=== PATIENT | female | born 1980 | race Two or more races ===

== ENCOUNTER 2022-07-18 21:40 | Emergency (ER) | payer BC, OTHER ==
[2022-07-18 22:01] VITALS: BP 120/70; PULSE 86; RESP 16; TEMP 98.5; BMI 20.5
== END 2022-07-18 23:35 | disposition home or self-care (01) ==
LOC: FER 21:40
DX: S00.33XA Contusion of nose, initial encounter (principal); S00.83XA Contusion of other part of head, initial encounter; S00.10XA Contusion of unspecified eyelid and periocular area, initial encounter; W23.1XXA Caught, crushed, jammed, or pinched between stationary objects, initial encounter; V48.4XXA Person boarding or alighting a car injured in noncollision transport accident, initial encounter
CPT/HCPCS: 70486-TC; 73630-TC-RT-FY; 81025; 99285-25

== ENCOUNTER 2022-07-31 18:19 | Emergency (ER) | payer BC, OTHER ==
[2022-07-31 18:31] VITALS: BP 111/67; PULSE 67; RESP 18; TEMP 98; BMI 20.5
== END 2022-07-31 19:50 | disposition home or self-care (01) ==
LOC: FER 18:19
DX: S20.219A Contusion of unspecified front wall of thorax, initial encounter (principal); Y04.0XXA Assault by unarmed brawl or fight, initial encounter
CPT/HCPCS: 71046-TC-FY; 99283-25

== ENCOUNTER 2023-07-26 21:35 | Emergency (ER) | payer OTHER, BC ==
[2023-07-26 21:44] VITALS: RESP 16; BMI 20.9
[2023-07-26 22:27] LABS: HEMATOCRIT 36.4 % (32.4-45.2); MCH 28.9 pg (25.7-33.7); MCHC 32.9 g/dl (32.0-36.0); MEAN CELL VOLUME 87.7 fl (80-96); MEAN PLT VOLUME 8.1 fl (7.5-11.1); PLATELET COUNT 308.2 10^3/uL (134-434); RBC 4.15 10^6/uL (3.60-5.2); RDW 14.7 % (11.6-15.6); WHITE BLOOD COUNT 7.3 10^3/uL (4.0-10.8)
[2023-07-26 22:52] LABS: AMORP URATES FEW /hpf (NONE SEEN); EPITHELIAL CELLS 0-5 /hpf
[2023-07-26 22:56] LABS: ALBUMIN 4.4 g/dl (3.4-5.0); BILIRUBIN,TOTAL 0.3 mg/dl (0.2-1); CALCIUM 9.8 mg/dl (8.5-10.1); CREATININE 0.7 mg/dl (0.6-1.3); TOT PROT 6.4 g/dl (6.4-8.2)
[2023-07-27 00:35] VITALS: BP 95/60; PULSE 74; TEMP 98.1
== END 2023-07-27 00:35 | disposition home or self-care (01) ==
LOC: FER 21:35
DX: S00.03XA Contusion of scalp, initial encounter (principal); R42 Dizziness and giddiness; W01.198A Fall on same level from slipping, tripping and stumbling with subsequent striking against other object, initial encounter; Y92.9 Unspecified place or not applicable
CPT/HCPCS: 36415; 70450-TC; 80053; 81003; 81015; 81025; 84484; 85027; 93005; 99285-25

== ENCOUNTER 2023-10-15 20:47 | Emergency (ER) | payer OTHER ==
[2023-10-15 21:17] VITALS: BP 95/63; PULSE 90; RESP 16; TEMP 99.1; BMI 21.2
[2023-10-15] MEDS ORDERED: ACETAMINOPHEN 500 MG TABLET (FP) ONE (21:19)
[2023-10-15] MEDS: ACETAMINOPHEN 500 MG TABLET (FP) PO ONE (21:21)
== END 2023-10-15 21:48 | disposition home or self-care (01) ==
LOC: FER 20:47
DX: S00.33XA Contusion of nose, initial encounter (principal); R51.9 Headache, unspecified; M54.2 Cervicalgia; J34.89 Other specified disorders of nose and nasal sinuses; M79.641 Pain in right hand; V89.2XXA Person injured in unspecified motor-vehicle accident, traffic, initial encounter; Y93.I9 Activity, other involving external motion; Y92.410 Unspecified street and highway as the place of occurrence of the external cause
CPT/HCPCS: 70160-TC-FY; 99283-25